=== PATIENT | female | born 1960 | race American Indian/Alaskan Native ===

== ENCOUNTER 2016-10-05 06:20 | Day surgery (SDC) | payer OTHER ==
[2016-09-26 13:40] VITALS: BMI 32.8
[2016-10-05] MEDS ORDERED: Propofol 10 mg/ml Inj (20 ML) ONE (07:43)
[2016-10-05] MEDS ORDERED: Midazolam 2 MG/2 ML VIAL ONE (07:43)
[2016-10-05] MEDS ORDERED: Lidocaine Hydrochloride 5 ML INJ ONE (09:00)
--- NOTE | 2016-10-05 09:31 | PCM.SURG1 ---
Surgeon's Initial Post Op Note - Surgeon's Notes Surgeon: Priscila Feliz MD Medical Imaging Specialist: none Type of Anesthesia: General LMA Pre-Operative Diagnosis: Post coital bleeding, submucosal myoma Operative Findings: antevertee uteurs 8 weeks, dize, bilateral ostia visulzed, small submuocsal myoma type tiss noted anter mid wall <1cm, no adnxel dieter, urine oupt 50 cc clear yellow urine Post-Operative Diagnosis: same as above Operation Performed: Hysteroscopic myomecotmy, fractional dilation and currettage Specimen/Specimens Removed: submucosal myoma, endocervical currettins, endometrial currettings Estimated Blood Loss: EBL {In ML}: 5 Blood Products Given: N/A Drains Used: No Drains Post-Op Condition: Good Date of Surgery/Procedure: 10/05/16 Time of Surgery/Procedure: 09:00
[2016-10-05] MEDS ORDERED: HYDROmorphone 0.5 mg/0.5 ml ISec IVP PRN (09:39)
[2016-10-05 11:14] VITALS: BP 141/85; PULSE 59; RESP 16; TEMP 97.5; O2SAT 100
--- NOTE | 2016-10-05 20:27 | OP ---
PROCEDURE DATE: 10/05/2016 PREOPERATIVE DIAGNOSES: Postcoital bleeding and submucosal myoma. POSTOPERATIVE DIAGNOSES: Postcoital bleeding and submucosal myoma. OPERATION PERFORMED: Hysteroscopic myomectomy and proximal dilatation and curettage. SURGEON: Priscila Feliz MD HOME DESIGNER: None. TYPE OF ANESTHESIA: General LMA. OPERATIVE FINDINGS: Anteverted uterus 8-week size, bilateral ostia are visualized, small submucosal myoma noted anteriorly at mid wall less than 1 cm. No adnexal mass. ESTIMATED BLOOD LOSS: 5 mL. BLOOD PRODUCTS: None. URINE OUTPUT: 50 mL of clear yellow urine. COMPLICATIONS: None. SPECIMENS: Submucosal myoma, endocervical curettings, and endometrial curettings. DESCRIPTION OF PROCEDURE: The patient was taken to the operating room where she was given general anesthesia. Once found to be adequate, she was placed on the operating table in the dorsal supine position with legs supported using stirrups. The patient was prepped and draped in the usual sterile fashion. A time-out confirmed correct patient and correct procedure. The bimanual exam was performed with the above mentioned findings. Red rubber catheter was then inserted into the urethra to drain the bladder. Thin retractor was placed in the anterior and posterior fornix of the vagina and the cervix was adequately visualized. Single-toothed tenaculum was placed in the anterior lip of the cervix and endocervical curettings were obtained with a Louieian curette and sent to pathology on [facility]. The uterus was then sounded and then the uterus was sequentially dilated to allow for introduction of the hysteroscopy under visualization using normal saline as a distention media. With the above noted finding, the hysteroscope MyoSure device was then inserted under direct visualization and the submucosal myoma was carefully resected. The hysteroscope MyoSure device was then removed and a gentle curettage was done 360 degrees. The specimen was sent to pathology noted as endometrial curetting. All instruments were removed. There was good hemostasis at the tenaculum puncture site. At the end of the procedure, all needle, sponge, and instrument counts were noted correct x 2. The patient tolerated the procedure well and was transferred to recovery room in stable condition. Priscila Feliz MD
== END 2016-10-05 11:33 | disposition home or self-care (01) ==
LOC: C.SDS 06:20
PROVIDERS: ATTEND Obstetrics & Gynecology
DX: D25.0 Submucous leiomyoma of uterus (principal); N32.81 Overactive bladder; N93.0 Postcoital and contact bleeding
CPT/HCPCS: 58561; 88305; J2250; J2704; J3010